=== PATIENT | male | born 1955 ===

== ENCOUNTER 2018-03-14 06:51 | Emergency (ER) | payer MEDICAID ==
[2018-03-14 08:03] LABS: BASO # 0.1 K/uL (0.0-0.2); BASO % 1.3 % (0.0-2.0); EOS # 0.3 K/uL (0.0-0.7); EOS % 3.5 % (0.0-4.0); HEMOGLOBIN 13.6 g/dL (12.0-18.0); LYMPH # 2.2 K/uL (1.0-4.3); LYMPH % 21.9 % (20.0-40.0); MEAN CELL VOLUME 85.4 fL (80.0-94.0); MEAN CORPUSCULAR HEMOGLOBIN 28.8 pg (27.0-31.0); MEAN CORPUSCULAR HGB CONC 33.8 g/dL (33.0-37.0); MEAN PLATELET VOLUME 10.7 fL (7.2-11.7); MONO # 0.8 K/uL (0.0-0.8); MONO % 8.2 % (0.0-10.0); NEUT # 6.4 K/uL (1.8-7.0); NEUT % 65.1 % (50.0-75.0); NRBC % 0.1 % (0.0-2.0); RBC 4.73 Mil/uL (4.40-5.90); RED CELL DISTRIBUTION WIDTH 13.4 % (11.5-14.5); WHITE BLOOD COUNT 9.9 K/uL (4.8-10.8)
--- NOTE | 2018-03-14 08:32 | C.PDOC ---
History Of Present Illness The patient reports 2 week history of an abscess to the right scapular region, which is associated with fever. The patient reports that he squeezed and expressed blood and pus several days ago. The patient reports that he was initially seen at the clinic and was prescribed antibiotics, but the area became worse prompting visit. Denies numbness, weakness. Time Seen by Provider: 03/14/18 07:08 Chief Complaint (Nursing): Abnormal Skin Integrity History Per: Patient History/Exam Limitations: no limitations Onset/Duration Of Symptoms: Days, Persistent Current Symptoms Are (Timing): Still Present Pain Scale Rating Of: 7 Recent travel outside of the [place]: No Past Medical History Reviewed: Historical Data, Nursing Documentation, Vital Signs Vital Signs: Last Vital Signs Temp 98.3 F 03/14/18 08:56 Pulse 62 03/14/18 09:46 Resp 17 03/14/18 09:46 BP 148/89 03/14/18 09:46 Pulse Ox 99 03/14/18 09:46 - Medical History PMH: No Chronic Diseases Family History: States: Unknown Family Hx - Social History Hx Alcohol Use: Yes Hx Substance Use: No - Immunization History Hx Tetanus Toxoid Vaccination: No Hx Influenza Vaccination: No Hx Pneumococcal Vaccination: No Review Of Systems Constitutional: Positive for: Fever. Negative for: Weakness Eyes: Negative for: Pain ENT: Negative for: Ear Pain Cardiovascular: Negative for: Chest Pain, Palpitations Respiratory: Negative for: Cough, Shortness of Breath Gastrointestinal: Negative for: Nausea, Abdominal Pain Musculoskeletal: Negative for: Neck Pain Neurological: Negative for: Weakness, Numbness Physical Exam - Physical Exam Appears: Non-toxic, No Acute Distress Skin: Normal Color, Warm, No Rash, Other ((+) 10cm x 10 cm area of swelling, erythma, tenderness and induration) Head: Atraumatic, Normacephalic Eye(s): bilateral: Normal Inspection, PERRL, EOMI Oral Mucosa: Moist Neck: Normal ROM, Supple Chest: Symmetrical, No Tenderness Cardiovascular: Rhythm Regular, No Friction Rub, No Murmur Respiratory: Normal Breath Sounds, No Rales, No Rhonchi, No Wheezing Gastrointestinal/Abdominal: Soft, No Tenderness Extremity: Normal ROM, No Tenderness, Capillary Refill (< 2 sec), No Swelling Neurological/Psych: Oriented x3, Normal Speech Gait: Steady ED Course And Treatment - Laboratory Results Result Diagrams: 03/14/18 07:55 03/14/18 07:55 O2 Sat by Pulse Oximetry: 96 (on RA) Pulse Ox Interpretation: Normal Medical Decision Making Medical Decision Making: The case was discussed with vice president of brand management Dr. Rubio and patient will be evaluated. Surgical team has evaluated the patient at bedside and were able to Incision and drain the abscess at bedside. Patient was instructed to follow up with Dr. Banegas within 1 week. Disposition - Disposition Referrals: Jomar Banegas MD [Staff Provider] - Disposition: HOME/ ROUTINE Disposition Time: 10:18 Condition: STABLE Additional Instructions: Return to the ED for wound check and packing removal. Follow up with Dr. Banegas within 1 week. Prescriptions: Clindamycin [Cleocin] 300 mg PO TID #30 cap Ibuprofen [Motrin] 600 mg PO TID #21 tab Instructions: Skin Abscess Forms: [facility] (Palestinian) - Clinical Impression Clinical Impression: Cellulitis, Abscess
[2018-03-14 08:40] LABS: ALB/GLOB RATIO 1.2 (1.0-2.1); ALBUMIN 4.2 g/dL (3.5-5.0); ALT/SGPT 23 U/L (21-72); AST/SGOT 30 U/L (17-59); BLOOD UREA NITROGEN 11 mg/dL (9-20); CALCIUM 9.1 mg/dl (8.6-10.4); GFR NON-AFRICAN AMERICAN > 60
[2018-03-14 08:56] VITALS: TEMP 98.3
[2018-03-14] MEDS ORDERED: Epinephrine /Lidocaine HCL 1:100,000/2% 30 ml INJ ONE (09:16)
--- NOTE | 2018-03-14 09:38 | CP.PCM.CON ---
History of Present Illness - History of Present Illness History of Present Illness: General surgical consult for Dr. Michelle Rubio PGY2 Patient S & E at bedside 9am 62F w/no sig PMH consulted for R shoulder infection x 4 days. First noticed 4 days prior to evaluation with small amount of purulent drainage expressed. Seen by [facility] with PO Abx given. Continues to c/o of non radiating moderate pain, worsened with pressure. No inciting or alleviating factors identified. Lesion has been enlargening overtime. Admits to subjective fevers. Denies N & V, chills, changes in bowel or bladder habits, other complaints. PMH: Denies PSH: Denies All :NKDA SH: Denies ETOH, tobacco or illicit drug use Review of Systems - Review of Systems All systems: reviewed and no additional remarkable complaints except - Constitutional Constitutional: Fever. absent: Chills - Cardiovascular Cardiovascular: absent: Chest Pain, Dyspnea, Lightheadedness, Radiating Pain - Respiratory Respiratory: absent: Cough, Dyspnea - Gastrointestinal Gastrointestinal: absent: Abdominal Pain, Constipation, Diarrhea - Genitourinary Genitourinary: absent: Difficulty Urinating - Musculoskeletal Musculoskeletal: Limited Range of Motion (due to pain). absent: Tingling - Integumentary Integumentary: Erythema, Lesions - Neurological Neurological: absent: Headaches - Psychiatric Psychiatric: absent: Change in Appetite Past Patient History - Past Social History Smoking Status: Never Smoked - PSYCHIATRIC Hx Substance Use: No - SURGICAL HISTORY Hx Surgeries: No Meds Allergies/Adverse Reactions: Allergies Allergy/AdvReac Type Severity Reaction Status Date / Time No Known Allergies Allergy Unverified 03/14/18 07:04 Physical Exam - Constitutional Appears: Non-toxic, No Acute Distress - Head Exam Head Exam: ATRAUMATIC, NORMAL INSPECTION, NORMOCEPHALIC - Eye Exam Eye Exam: EOMI, Normal appearance - ENT Exam ENT Exam: Mucous Membranes Moist, Normal Exam - Neck Exam Neck exam: Positive for: Full Rom, Normal Inspection - Respiratory Exam Respiratory Exam: NORMAL BREATHING PATTERN. absent: Clear to Auscultation Bilateral - Cardiovascular Exam Cardiovascular Exam: REGULAR RHYTHM, +S1, +S2 - GI/Abdominal Exam GI & Abdominal Exam: Soft. absent: Distended, Firm, Tenderness - Extremities Exam Extremities exam: Positive for: tenderness. Negative for: normal inspection Additional comments: Right shoulder with erythema 10X6cm^2 over posterior aspect, induration, central eschar, and pustules w/ area of fluctuance superior to eschar - Neurological Exam Neurological exam: Alert, CN II-XII Intact, Oriented x3 - Psychiatric Exam Psychiatric exam: Normal Affect, Normal Mood - Skin Skin Exam: Dry, Erythema (right shoulder), Warm Results - Vital Signs Recent Vital Signs: Last Vital Signs Temp 98.3 F 03/14/18 08:56 Pulse 86 03/14/18 07:00 Resp 20 03/14/18 07:00 BP 120/73 03/14/18 07:00 Pulse Ox 96 03/14/18 08:35 - Labs Result Diagrams: 03/14/18 07:55 03/14/18 07:55 Labs: Laboratory Results - last 24 hr 03/14/18 03/14/18 07:55 07:55 WBC 9.9 RBC 4.73 Hgb 13.6 Hct 40.4 MCV 85.4 MCH 28.8 MCHC 33.8 RDW 13.4 Plt Count 195 MPV 10.7 Neut % (Auto) 65.1 Lymph % (Auto) 21.9 [place] % (Auto) 8.2 Eos % (Auto) 3.5 Baso % (Auto) 1.3 Neut # (Auto) 6.4 Lymph # (Auto) 2.2 [place] # (Auto) 0.8 Eos # (Auto) 0.3 Baso # (Auto) 0.1 Sodium 139 Potassium 4.4 Chloride 102 Carbon Dioxide 30 Anion Gap 12 BUN 11 Creatinine 1.0 Est GFR ( Amer) > 60 Est GFR (Non-Af Amer) > 60 Random Glucose 139 H Calcium 9.1 Total Bilirubin 0.6 AST 30 ALT 23 Alkaline Phosphatase 71 Total Protein 7.9 Albumin 4.2 Globulin 3.7 Albumin/Globulin Ratio 1.2 Assessment & Plan - Assessment and Plan (Free Text) Assessment: 62M w/right shoulder abscess Plan: Plan for bedside I & D Consent in chart FU with Dr. Banegas in clinic in 1 week for evaluation DW Dr. Makenzie Rubio, PGY-2 - Date & Time Date: 03/14/18 Time: 09:36 - Incision & Drainage Of Abscess Anesthesia: Lidocaine 1%, With Epi Prep Used: Betadine Procedure: Incised W/Scalpel Blade#: (11), Drained Pus, Irrigated Cavity W/ Saline, Probed To Break Up Loculations, Packed W/Gauze, Cultures Obtained And Sent To Lab
[2018-03-14] MEDS ORDERED: Lidocaine 2% w Epi 1:100,000 Inj IJ ONE (09:42)
[2018-03-14 09:47] VITALS: BP 148/89; PULSE 62; RESP 17
[2018-03-14 10:23] VITALS: O2SAT 96
== END 2018-03-14 10:50 | disposition home or self-care (01) ==
LOC: C.ER 06:51
DX: L02.413 Cutaneous abscess of right upper limb (principal); L03.113 Cellulitis of right upper limb
CPT/HCPCS: 10060; 80053; 85025; 87070; 87206; 96374; 99284; J1885

== ENCOUNTER 2018-03-16 11:30 | Emergency (ER) | payer MEDICAID ==
[2018-03-16 11:42] VITALS: BP 139/81; PULSE 100; RESP 18; TEMP 97.7; O2SAT 96; BMI 28.4
--- NOTE | 2018-03-16 12:27 | C.PDOC ---
History Of Present Illness 62 year old male presents to ED for wound check and dressing change. Patient reports he was seen here 2 days ago for I&D of right shoulder abscess by rn surgical pcu and has an appointment with Dr. Banegas in six days. Denies fever, chills, nausea, vomiting. Time Seen by Provider: 03/16/18 12:26 Chief Complaint (Nursing): Wound Check History Per: Patient History/Exam Limitations: no limitations Onset/Duration Of Symptoms: Days Ago Current Symptoms Are (Timing): Still Present Past Medical History Reviewed: Historical Data, Nursing Documentation, Vital Signs Vital Signs: Last Vital Signs Temp 97.7 F 03/16/18 11:36 Pulse 100 H 03/16/18 11:36 Resp 18 03/16/18 11:36 BP 139/81 03/16/18 11:36 Pulse Ox 96 03/17/18 10:43 Surgical History: No Surg Hx Family History: States: No Known Family Hx - Social History Hx Alcohol Use: No Hx Substance Use: No - Immunization History Hx Tetanus Toxoid Vaccination: No Hx Influenza Vaccination: No Hx Pneumococcal Vaccination: No Review Of Systems Except As Marked, All Systems Reviewed And Found Negative. Constitutional: Negative for: Fever, Chills Gastrointestinal: Negative for: Nausea, Vomiting Physical Exam - Physical Exam Appears: Non-toxic, No Acute Distress Skin: Warm, Dry, Other (two deep wound openings to right shoulder with granulation tissue, no drainage. ) Head: Atraumatic, Normacephalic Eye(s): bilateral: Normal Inspection Oral Mucosa: Moist Neck: Normal ROM, Supple Extremity: Normal ROM, No Tenderness, Capillary Refill (less than 2 seconds), No Deformity, No Swelling Pulses: Right Radial: Normal Neurological/Psych: Oriented x3, Normal Speech ED Course And Treatment O2 Sat by Pulse Oximetry: 96 (RA) Pulse Ox Interpretation: Normal Progress Note: Wounds were cleaned, repacked, and redressed in ER. Patient is taking antibiotics as instructed and was told to follow up in 2 days. Disposition - Disposition Disposition: HOME/ ROUTINE Disposition Time: 12:39 Condition: STABLE Additional Instructions: Follow up with as scheduled. Return to ED if feel worse. Wound check and dressing change in 2 days. Instructions: Wound Care (DC) Forms: [facility] (Hebrew) - Clinical Impression Clinical Impression: Wound check, abscess - PA / SENIOR CORE JAVA DEVELOPER / Resident Statement MD/DO has reviewed & agrees with the documentation as recorded. - Scribe Statement The provider has reviewed the documentation as recorded by the Scribe Oscar Ferguson All medical record entries made by the Emanuel were at my direction and personally dictated by me. I have reviewed the chart and agree that the record accurately reflects my personal performance of the history, physical exam, medical decision making, and the department course for this patient. I have also personally directed, reviewed, and agree with the discharge instructions and disposition.
== END 2018-03-16 12:48 | disposition home or self-care (01) ==
LOC: C.ER 11:30
DX: L02.413 Cutaneous abscess of right upper limb (principal); Z48.00 Encounter for change or removal of nonsurgical wound dressing

== ENCOUNTER 2018-03-19 08:16 | Emergency (ER) | payer MEDICAID ==
[2018-03-19 08:17] VITALS: BMI 28.4
[2018-03-19 08:34] VITALS: BP 142/83; PULSE 78; RESP 18; TEMP 98.3; O2SAT 97
--- NOTE | 2018-03-19 08:53 | C.PDOC ---
History Of Present Illness 62 year old male presents to ED for wound check and dressing change. Patient reports he was seen here 03/14/18 for I&D of right shoulder abscess by vice president pharmacy, and Dr. Banegas. Patient taking antibiotics and denies fever. Time Seen by Provider: 03/19/18 08:40 Chief Complaint (Nursing): Wound Check History Per: Patient History/Exam Limitations: no limitations Past Medical History Reviewed: Historical Data, Nursing Documentation, Vital Signs Vital Signs: Last Vital Signs Temp 98.3 F 03/19/18 08:33 Pulse 78 03/19/18 08:33 Resp 18 03/19/18 08:33 BP 142/83 03/19/18 08:33 Pulse Ox 97 03/19/18 09:31 - Medical History PMH: No Chronic Diseases Surgical History: No Surg Hx Family History: States: No Known Family Hx - Social History Hx Alcohol Use: Yes Hx Substance Use: No - Immunization History Hx Tetanus Toxoid Vaccination: No Hx Influenza Vaccination: No Hx Pneumococcal Vaccination: No Review Of Systems Except As Marked, All Systems Reviewed And Found Negative. Constitutional: Negative for: Fever, Chills Physical Exam - Physical Exam Appears: Non-toxic, No Acute Distress Skin: Warm, Dry, Other (two deep wound openings to right shoulder with granulation tissue, no drainage or surrounding erythema) Head: Atraumatic, Normacephalic Eye(s): bilateral: Normal Inspection Neck: Normal ROM Chest: Symmetrical Neurological/Psych: Oriented x3, Normal Speech ED Course And Treatment O2 Sat by Pulse Oximetry: 97 (RA) Pulse Ox Interpretation: Normal Medical Decision Making Medical Decision Making: Progress: Wounds were cleaned, packing removed, and redressed in ER. Patient is taking antibiotics as instructed and has been instructed to follow up with Dr. Banegas Disposition Counseled Patient/Family Regarding: Diagnosis, Need For Followup - Disposition Referrals: Jomar Banegas MD [Staff Provider] - [facility] [Outside] Disposition: HOME/ ROUTINE Disposition Time: 08:52 Condition: GOOD Additional Instructions: YOU CAN SEE DR ABNEGAS IN HIS OFFICE OR IN THE FAMILY CLINIC IN BASEMENT Instructions: Wound Care (DC) - POA Present On Arrival: None - Clinical Impression Clinical Impression: Encounter for change of dressing, Abscess packing removal - PA / PROJECT DEVELOPER / Resident Statement MD/DO has reviewed & agrees with the documentation as recorded. - Scribe Statement The provider has reviewed the documentation as recorded by the Scribe Hola Layne Provider Attestation All medical record entries made by the Rosaibe were at my direction and personally dictated by me. I have reviewed the chart and agree that the record accurately reflects my personal performance of the history, physical exam, medical decision making, and the department course for this patient. I have also personally directed, reviewed, and agree with the discharge instructions and disposition.
== END 2018-03-19 09:00 | disposition home or self-care (01) ==
LOC: C.ER 08:16
DX: Z48.00 Encounter for change or removal of nonsurgical wound dressing (principal); L02.413 Cutaneous abscess of right upper limb